=== PATIENT | female | born 1945 | race Caucasian/White ===

== ENCOUNTER 2018-10-19 18:40 | Emergency (ER) | payer MEDICARE ==
[~2018-10-19] VITALS: Ht 157.5 cm; Wt 62.1 kg
--- NOTE | 2018-10-19 19:16 | NUR ---
PT TO ED FOR SWELLING AND PAIN TO LEFT BREAST X2 DAYS. PT REPORTS BREAST AUGMENTATION 18-20 YEARS AGO. DENIES TRAUMA. CONNECTED TO MONITORS. HTN 190/86, ALL OTHER VSS. NO NEEDS EXPRESSED. [facility]. AWAITING EDMD ASSESSMENT.
[2018-10-19] MEDS ORDERED: METF500T17 PO (19:23)
[2018-10-19] MEDS ORDERED: CLON0.1T22 PO (19:23)
[2018-10-19] MEDS ORDERED: ATOR-2 PO (19:23)
[2018-10-19] MEDS ORDERED: CARV12.52 PO (19:23)
[2018-10-19] MEDS ORDERED: OMEP20TA62 PO (19:23)
[2018-10-19] MEDS ORDERED: LISI-167 PO (19:23)
[2018-10-19 20:26] LABS: BASOPHILS # (AUTO) 0.04 x10^3/uL (0-0.1); BASOPHILS % (AUTO) 0 % (0-1); EOSINOPHILS % (AUTO) 1 % (1-7); LYMPHOCYTES # (AUTO) 1.21 x10^3/uL (1-3.4); LYMPHOCYTES % (AUTO) 10 % (22-44); MD NO; MEAN CORPUSCULAR HEMOGLOBIN 31.3 pg (27.0-34.8); MEAN CORPUSCULAR HGB CONC 32.9 g/dL (32.4-35.8); MEAN CORPUSCULAR VOLUME 95.1 fL (80-100); MEAN PLATELET VOLUME 6.7 fL (7.4-10.4); MONOCYTES # (AUTO) 0.89 x10^3/uL (0.2-0.8); MONOCYTES % (AUTO) 7 % (2-9); NEUTROPHILS # (AUTO) 10.51 x10^3/uL (1.8-6.8); NEUTROPHILS % (AUTO) 82 % (42-75); PLATELET COUNT 536 x10^3/uL (130-400); RED BLOOD COUNT 3.45 x10^6/uL (3.82-5.3); RED CELL DISTRIBUTION WIDTH 13.1 % (9.6-15.2)
[2018-10-19 20:35] LABS: ALBUMIN 2.9 g/dL (3.4-5.0); ANION GAP 10 mmol/L (5-15); CALCIUM 8.9 mg/dL (8.5-10.1); CHLORIDE 97 mmol/L (98-107); CREATININE 0.54 mg/dL (0.55-1.02)
[2018-10-19 20:38] VITALS: BP 198/101
[2018-10-19 20:39] LABS: TROPONIN I < 0.015 ng/mL (0.000-0.045)
--- NOTE | 2018-10-19 21:12 | NUR ---
pt htn. edmd aware. pt states it is time for her evening medications. pts to retreive medications. ok to take per edmd. all other vss. all resutls back at this time. chart up for recheck.
--- NOTE | 2018-10-19 21:20 | NUR ---
PT UPDATED ON POC. PALN TO DC AFTER MEDICATION ADMINISTRATION.
[2018-10-19] MEDS ORDERED: HYDROcodone/APAP 5/325 TABLET ONE (21:24)
[2018-10-19] MEDS ORDERED: HYDROcodone/APAP 5/325 TABLET PO ONE (21:30)
== END 2018-10-19 21:47 | disposition home or self-care (01) ==
LOC: ED 19:59
DX: M19.012 Primary osteoarthritis, left shoulder (principal); E87.1 Hypo-osmolality and hyponatremia; N64.4 Mastodynia; R19.7 Diarrhea, unspecified; I10 Essential (primary) hypertension; E11.9 Type 2 diabetes mellitus without complications; E78.00 Pure hypercholesterolemia, unspecified; F17.200 Nicotine dependence, unspecified, uncomplicated
CPT/HCPCS: 36415; 71045; 80048; 82040; 84484; 85025; 93005; 99284